=== PATIENT | female | born 1960 | race Caucasian/White ===

== ENCOUNTER → 2017-07-30 | Outpatient (CLI) | payer BC ==
[~2017-07-30] MED LIST: ASPI81EC; ATOR10; DIVA250EC; DIVA500EC; FAMO20 PO; Flomax0.4 MG PO; HYDR1TAB94 PO; IBUP600 PO; KETO10 PO; LEVE500 PO; LEVFLO500 PO; LEVSOD25; LEVSOD50 PO; Norco 5-325 Ta1 EACH PO; OXYACE5T PO; PROM25 PO; PROP120ER; TOPI100 PO; Zofran4 MG PO
[2017-08-01 16:09] LABS: HPV Genotype 16 Not Detected (NOTDET); HPV Genotype 18 Not Detected (NOTDET)
[2017-08-07 09:22] LABS: HPV High Risk Other Not Detected (NOTDET)
== END | disposition home or self-care (01) ==
LOC: OLS 16:41
PROVIDERS: Obstetrics & Gynecology Gynecology
DX: Z12.72 Encounter for screening for malignant neoplasm of vagina (principal)
CPT/HCPCS: 87624; G0123

== ENCOUNTER 2018-01-17 10:17 | Emergency (ER) | payer OTHER, BC ==
[~2018-01-17] VITALS: Ht 165.1 cm; Wt 74.4 kg
[~2018-01-17 10:17] MED LIST changes: -HYDR1TAB94 PO
[2018-01-17] MEDS ORDERED: HYDR1TAB94 PO (13:06)
== END 2018-01-17 13:36 | disposition home or self-care (01) ==
LOC: ER 10:17
DX: S52.512A Displaced fracture of left radial styloid process, initial encounter for closed fracture (principal); M79.1 Myalgia; M25.512 Pain in left shoulder; M25.522 Pain in left elbow; G40.909 Epilepsy, unspecified, not intractable, without status epilepticus; Z88.5 Allergy status to narcotic agent; Z88.8 Allergy status to other drugs, medicaments and biological substances; Z79.899 Other long term (current) drug therapy; Z87.891 Personal history of nicotine dependence; V89.2XXA Person injured in unspecified motor-vehicle accident, traffic, initial encounter; Y92.411 Interstate highway as the place of occurrence of the external cause
CPT/HCPCS: 29125; 73030; 73080; 73110; 99284

== ENCOUNTER → 2019-05-26 | Outpatient (CLI) | payer BC ==
[~2019-05-26] MED LIST changes: +HYDR1TAB94 PO
[2019-05-27 14:07] LABS: HPV 16 Negative (Negative); HPV 18 Negative (Negative); HPV OTHER HR TYPES Negative (Negative)
== END | disposition home or self-care (01) ==
LOC: LAB 11:31 → LAB SHORT 11:31
PROVIDERS: Obstetrics & Gynecology Gynecology
DX: Z12.72 Encounter for screening for malignant neoplasm of vagina (principal)
CPT/HCPCS: 87624; G0123

== ENCOUNTER → 2020-12-13 | Outpatient (CLI) | payer BC ==
[2020-12-13 12:55] LABS: Source, Urine Clean Catch
[2020-12-13 15:46] LABS: Appearance, Urine Clear (Clear); Bilirubin, Urine Neg (Neg); Blood, Urine 1+ (Neg); Color, Urine Yellow (P-Yellow); Glucose Qualitative, Urine Neg (Neg); Ketones, Urine Neg (Neg); Leukocyte Esterase, Urine Neg (Neg); Nitrite, Urine Neg (Neg); Protein, Urine Neg (Neg); Specific Gravity, Urine 1.015 (1.003-1.022); Urobilinogen, Urine NORM (Normal)
[2020-12-13 16:18] LABS: Amorphous Light (0-Heavy); Bacteria Rare /hpf; Mucus Light (0-Heavy); Squamous Epithelial Cells Mod /hpf (Few); Transitional Epithelial Cells Rare /hpf (0-Rare); White Blood Cells, Urine Not Seen /hpf (0-5)
== END | disposition home or self-care (01) ==
LOC: LAB 08:52 → LAB SHORT 08:52 → LAB FUT 12-13 09:25 → EDSTATUS 12-13 09:25
PROVIDERS: Physician Assistant
DX: N18.32 Chronic kidney disease, stage 3b (principal); R30.0 Dysuria
CPT/HCPCS: 81001; 87086

== ENCOUNTER → 2022-02-01 | Outpatient (CLI) | payer BC ==
[2022-02-01 09:01] LABS: Source, Urine Clean Catch
[2022-02-01 10:17] LABS: Bilirubin, Urine Neg (Neg); Blood, Urine Neg (Neg); Glucose Qualitative, Urine Neg (Neg); Ketones, Urine Neg (Neg); Leukocyte Esterase, Urine Neg (Neg); Nitrite, Urine Neg (Neg); Protein, Urine Neg (Neg); Specific Gravity, Urine 1.025 (1.003-1.022); Urobilinogen, Urine NORM (Normal)
[2022-02-01 13:09] LABS: Appearance, Urine Clear (Clear); Color, Urine Yellow (P-Yellow)
== END | disposition home or self-care (01) ==
LOC: LAB SHORT 08:17 → LAB 08:17 → EDSTATUS 01-30 08:35 → LAB FUT 01-30 08:35
PROVIDERS: Hospitalist
DX: R10.9 Unspecified abdominal pain (principal)
CPT/HCPCS: 81003

== ENCOUNTER 2023-04-20 08:14 | Emergency (ER) | payer OTHER, BC ==
[~2023-04-20] VITALS: Ht 165.1 cm; Wt 66.7 kg
[2023-04-20] MEDS ORDERED: ROSU5 PO (08:31)
[2023-04-20] MEDS ORDERED: LEVSOD75 PO (08:31)
[2023-04-20] MEDS ORDERED: AIMOVIG AU70 MG/1 ML SQ (08:31)
[2023-04-20] MEDS ORDERED: LANS15EC PO (09:42)
[2023-04-20] MEDS ORDERED: METO10 PO (12:18)
[2023-04-20 12:20] VITALS: BP 145/88
== END 2023-04-20 12:28 | disposition home or self-care (01) ==
LOC: ER 08:14
DX: S09.90XA Unspecified injury of head, initial encounter (principal); S16.1XXA Strain of muscle, fascia and tendon at neck level, initial encounter; G44.309 Post-traumatic headache, unspecified, not intractable; V43.52XA Car driver injured in collision with other type car in traffic accident, initial encounter; Z88.5 Allergy status to narcotic agent; Z88.8 Allergy status to other drugs, medicaments and biological substances; Z79.899 Other long term (current) drug therapy; G43.909 Migraine, unspecified, not intractable, without status migrainosus; G40.909 Epilepsy, unspecified, not intractable, without status epilepticus; Z87.891 Personal history of nicotine dependence
CPT/HCPCS: 70450; 72125; 99284-25; A9270

== ENCOUNTER 2025-05-04 10:46 | Emergency (ER) | payer BC ==
[~2025-05-04] VITALS: Ht 165.1 cm; Wt 68.0 kg
[~2025-05-04 10:46] MED LIST changes: +AIMOVIG AU70 MG/1 ML SQ; +LANS15EC PO; +LEVSOD75 PO; +METO10 PO; +ROSU5 PO
[2025-05-04 12:02] LABS: Source, Urine Clean Catch
[2025-05-04 12:08] LABS: BASOPHILS ABSOLUTE AUTO 0.03 K/mm3 (0.00-0.23); BASOPHILS PERCENT AUTO 0 % (0-2); EOSINOPHILS ABSOLUTE AUTO 0.11 K/mm3 (0.00-0.68); EOSINOPHILS PERCENT AUTO 2 % (0-6); Hematocrit 46.0 % (33.0-51.0); Hemoglobin 15.3 g/dL (11.5-16.0); IMMATURE GRAN ABSOLUTE AUTO 0.04 K/mm3 (0.00-0.10); IMMATURE GRAN PERCENT AUTO 1 % (0-1); LYMPHOCYTES ABSOLUTE AUTO 2.04 K/mm3 (0.84-5.20); LYMPHOCYTES PERCENT AUTO 29 % (21-46); MONOCYTES ABSOLUTE AUTO 0.72 K/mm3 (0.16-1.47); MONOCYTES PERCENT AUTO 10 % (4-13); Mean Corpuscular HGB Conc 33.3 g/dL (31.5-36.5); Mean Corpuscular Volume 96 fL (80-100); NEUTROPHILS ABSOLUTE AUTO 4.00 K/mm3 (1.96-9.15); NEUTROPHILS PERCENT AUTO 58 % (41-73); NRBC ABSOLUTE 0.00 K/mm3 (0.00-0.02); NRBC Auto 0.0 /100 WBC (0.0-0.2); Platelet Count 321 K/mm3 (150-400); RDW Coefficient Variation 12.6 % (11.7-14.2); RDW Standard Deviation 45.2 fL (35.1-46.3)
[2025-05-04 12:08] LABS: Bilirubin, Urine Neg (Neg); Color, Urine Yellow (P-Yellow); Glucose Qualitative, Urine Neg (Neg); Ketones, Urine Neg (Neg); Leukocyte Esterase, Urine 2+ (Neg); Protein, Urine 1+ (Neg); Specific Gravity, Urine 1.020 (1.003-1.022); Urobilinogen, Urine NORM (Normal)
[2025-05-04 12:15] LABS: Red Blood Cells, Urine 0-2 /hpf (0-2)
[2025-05-04 12:48] LABS: Alanine Aminotransfer (ALT/SGP 76.0 U/L (12-78); Albumin, Blood 4.0 g/dL (3.4-5.0); Albumin/Globulin Ratio 1.1 (0.8-1.8); Anion Gap 8.0 mmol/L (3-11); Aspartate Aminotrans (AST/SGOT 49.0 U/L (12-37); Bilirubin, Total 0.6 mg/dL (0.1-1.0); Blood Urea Nitrogen 20.0 mg/dL (8-24); CO2, Blood 25.0 mmol/L (21-32); Calcium, Blood 10.1 mg/dL (8.5-10.1); Chloride, Blood 108.0 mmol/L (98-108); Creatinine, Blood 1.39 mg/dL (0.40-1.00); Globulin, Blood 3.6 g/dL (2.2-4.0); Glucose, Blood 98.0 mg/dL (70-99); Potassium, Blood 4.2 mmol/L (3.5-5.5); Sodium, Blood 137.0 mmol/L (136-145); Total Protein, Blood 7.6 g/dL (6.4-8.2)
[2025-05-04] MEDS ORDERED: FentaNYL Citrate 50 MCG/ML 2 ML Injection IV ONE (13:00)
[2025-05-04] MEDS ORDERED: NS 1,000 ML IV SCH (13:00)
[2025-05-04] MEDS ORDERED: Ondansetron HCl 2 MG / ML 2ML Vial IV ONE (13:00)
[2025-05-04] MEDS ORDERED: CEPH500 PO (13:02)
[2025-05-04 13:15] VITALS: BP 149/97
== END 2025-05-04 13:57 | disposition home or self-care (01) ==
LOC: ER 10:46
PROVIDERS: Physician Assistant
DX: N39.0 Urinary tract infection, site not specified (principal); G40.909 Epilepsy, unspecified, not intractable, without status epilepticus; Z98.890 Other specified postprocedural states; Z90.5 Acquired absence of kidney; Z87.891 Personal history of nicotine dependence; Z79.890 Hormone replacement therapy; Z79.899 Other long term (current) drug therapy
CPT/HCPCS: 74177; 80053; 81001; 83690; 85025; 87086; 96374-59; 96375; 99284-25; J2405; J3010; J7030; Q9967